=== PATIENT | male | born 1970 | race Hispanic/Latino ===

== ENCOUNTER 2022-07-02 18:46 | Emergency (ER) | payer SELFPAY ==
[~2022-07-02] VITALS: Ht 175.3 cm; Wt 76.2 kg
[2022-07-02 18:57] VITALS: BP 143/100
[2022-07-02 19:00] VITALS: BP 146/97
[2022-07-02] MEDS ORDERED: GLIPIZIDE ER2.5 MG PO (19:30)
[2022-07-02] MEDS ORDERED: METFORMIN HCL1000 MG PO (19:30)
[2022-07-02] MEDS ORDERED: ENALAPRIL2.5 MG PO (19:31)
[2022-07-02] MEDS ORDERED: LIPITOR20 M1 PO (19:31)
[2022-07-02] MEDS ORDERED: PIOGLITAZONE HC30 MG (19:32)
[2022-07-02 22:55] VITALS: BP 146/97
== END 2022-07-02 23:00 | disposition home or self-care (01) | DRG 605 ==
LOC: ED 18:46
PROC: 0HQ1XZZ Repair Face Skin, External Approach (ICD-10-PCS; principal; 2022-07-02)
DX: S01.81XA Laceration without foreign body of other part of head, initial encounter (principal); S39.012A Strain of muscle, fascia and tendon of lower back, initial encounter; E11.9 Type 2 diabetes mellitus without complications; E78.00 Pure hypercholesterolemia, unspecified; W55.22XA Struck by cow, initial encounter; Y93.K9 Activity, other involving animal care; Y92.79 Other farm location as the place of occurrence of the external cause; Z79.84 Long term (current) use of oral hypoglycemic drugs